=== PATIENT | female | born 1975 | race Caucasian/White ===

== ENCOUNTER 2018-11-06 15:33 | Emergency (ER) | payer SELFPAY ==
[2018-11-06 15:35] VITALS: BP 164/103; PULSE 87; RESP 16; TEMP 37.1; O2SAT 95; BMI 26.7
--- NOTE | 2018-11-06 15:38 | RAD_ITS ---
STUDY: X-RAY CHEST REASON FOR EXAM: Female, 43 years old. Chest pain TECHNIQUE: Frontal view of the chest COMPARISON: 11/27/2010 FINDINGS: The lungs are clear. There are no pleural effusions. There is no pneumothorax. The heart is normal in size. The visualized osseous structures are within normal limits. RAD/Chest 1 View (Portable) IMPRESSION: No acute thoracic pathology. Electronically Signed: Andrew Hanna, at 16:26 EDT Tel , Service support ,
--- NOTE | 2018-11-06 15:38 | EKG12_ITS ---
Test Reason : CP Blood Pressure : / mmHG Vent. Rate : 083 BPM Atrial Rate : 083 BPM P-R Int : 140 ms QRS Dur : 078 ms QT Int : 378 ms P-R-T Axes : 056 041 032 degrees QTc Int : 444 ms Normal sinus rhythm Normal ECG Confirmed by BILL FERNANDEZ, DOUGIE ([id number]), editor greeting card GAY HASKINS ([id number]) on 11/08/2018 10:36:18 AM Referred By: FAVIOLA Confirmed By:DOUGIE KHAN MD
[2018-11-06 15:52] VITALS: BP 146/82; PULSE 70; RESP 14; O2SAT 96
--- NOTE | 2018-11-06 15:56 | ED.VISSUMM ---
- ER Visit Summary Date of Service: 11/06/18 Chief Complaint: Chest pain History of Present Illness: The patient is a [address] depression. No cardiac history. Never had a stress test or cardiac cath. She said yesterday she just was not feeling well this started in the afternoon. She has some chest discomfort. Not associated with exertion. Also some upper abdominal pain which is since resolved nausea but no vomiting. No diarrhea or melena. No fever. No dysuria. She has had no recent exertional chest pain or exertional dyspnea. She is never had a DVT or PE. She has had no leg pain or swelling. No hemoptysis. Is not pleuritic. She has had no recent travel, surgery or immobilization. Physical Examination: Well-appearing middle-aged female. and children present in the room. Total signs are stable and afebrile. Pulse ox 95% on room air no hypoxia. Patient is emotionally tearful. HEENT exam is unremarkable. Neck nontender no JVD. Lungs clear to auscultation bilaterally. Heart regular rhythm no murmur. Abdomen is soft and nontender. Normal bowel sounds no peritoneal signs. Extremities moves all 4. Calves are nontender no edema no cords. Equal symmetrical radial pulses. Normal underwater trapper strength. Normal dorsi plantar flexion. Back nontender. Chest wall nontender. Neurologically she is awake alert with no focal motor deficits. Test Results: Chest x-ray no acute abnormality. Normal cardiac silhouette mediastinum portable one view. Read both by myself and radiologist. EKG sinus rhythm rate 83 no acute signs of AK or ischemia. CBC normal. Chemistries normal. Liver normal. Lipase normal. Troponin normal. Emergency Department Course and Treatment: Undergo cardiac work-up. She will be given IV Ativan 1 mg and p.o. aspirin. Repeat exam patient is doing well at 1650. I discussed all test results with her family she will be discharged home and outpatient follow-up with primary care physician. Treatment Plan: Outpatient follow-up Disposition: Discharge Impression: Acute chest pain uncertain etiology Acute on chronic depression and anxiety This note was generated with [employer] software. It may contain incorrect words, spelling, and punctuation that were not noted in review of the chart prior to signing ED Disposition - Plan for ED Patient: Referrals: Care Physician,No Primary [Primary Care Provider] -
--- NOTE | 2018-11-06 15:59 | ED.DCSUM_ITS ---
- ER Visit Summary Date of Service: 11/06/18 Chief Complaint: Chest pain History of Present Illness: The patient is a [address] depression. No cardiac history. Never had a stress test or cardiac cath. She said yesterday she just was not feeling well this started in the afternoon. She has some chest di scomfort. Not associated with exertion. Also some upper abdominal pain which is since resolved nausea but no vomiting. No diarrhea or melena. No fever. No dysuria. She has had no recent exertional chest pain or exertional dyspnea. She is never had a DVT or PE. She has had no leg pain or swelling. No hemoptysis. Is not pleuritic. She has had no recent travel, surgery or immobilization. Physical Examination: Well-appearing middle-aged female. and children present in the room. Total signs are stable and afebrile. Pulse ox 95% on room air no hypoxia. Patient is emotionally tearful. HEENT exam is unremarkable. Neck nontender no JVD. Lungs clear to auscultation bilaterally. Heart regular rhythm no murmur. Abdomen is soft and nontender. Normal bowel sounds no peritoneal signs. Extremities moves all 4. Calves are nontender no edema no cords. Equal symmetrical radial pulses. Normal solar pool heating installer strength. Normal dorsi plantar flexion. Back nontender. Chest wall nontender. Neurologically she is awake alert with no focal motor deficits. Test Results: Chest x-ray no acute abnormality. Normal cardiac silhouette mediastinum portable one view. Read both by myself and radiologist. EKG sinus rhythm rate 83 no acute signs of PR or ischemia. CBC normal. Chemistries normal. Liver normal. Lipase normal. Troponin normal. Emergency Department Course and Treatment: Undergo cardiac work-up. She will be given IV Ativan 1 mg and p.o. aspirin. Repeat exam patient is doing well at 1650. I discussed all test results with her family she will be discharged home and outpatient follow-up with primary care physician. Treatment Plan: Outpatient follow-up Disposition: Discharge Impression: Acute chest pain uncertain etiology Acute on chronic depression and anxiety This note was generated with [employer] software. It may contain incorrect words, spelling, and punctuation that were not noted in review of the chart prior to signing ED Disposition - Plan for ED Patient: Referrals: Care Physician,No Primary [Primary Care Provider] -
[2018-11-06] MEDS: Aspirin 81 MG TAB.CHEW 324 MG PO (16:03)
[2018-11-06] MEDS: LORazepam 2 MG/ML Syringe 1 MG IV (16:10)
[2018-11-06 16:16] LABS: Absolute Lymphocyte Count 2.45 X10^3/ul (0.83-4.51); Absolute Neutrophil Count 6.2 X10^3/uL (2.0-7.7); Basophil# 0.03 X10^3/uL; Basophil% 0.3 % (0-1); Eosinophil# 0.16 X10^3/uL; Eosinophils% 1.7 % (0-5); Hematocrit 38.8 % (37-47); Hemoglobin 12.9 g/dl (12.0-15.0); Lymphocyte # 2.45 X10^3/ul (4.0); Lymphocyte % 26.4 % (19-41); Mean Corp Hgb Conc 33.2 g/gl (32-36); Mean Corpuscular Hgb 28.6 pg (27.0-32.0); Mean Platelet Vol. 8.8 fl (6.2-12.0); Monocyte# 0.49 X10^3/uL; Monocyte% 5.3 % (0-10); Neutrophil # 6.15 X10^3/uL (2.7-7.7); Neutrophil % 66.3 % (47-70); POSITIVE COUNT NO; POSITIVE DIFFERENTIAL NO; POSITIVE MORPHOLOGY NO; Platelet Count 296 K/mm3 (150-450); RBC Distribution Width SD 40.9 fl (35.1-43.9); Red Blood Count 4.51 M/mm3 (4.2-5.4); White Blood Count 9.3 K/mm3 (4.4-11.0)
[2018-11-06 16:29] LABS: AST(SGOT) 18 U/L (15-37); Alanine Aminotransfer ALT/SGPT 23 U/L (13-56); Albumin, Serum 3.9 g/dL (3.2-5.0); Alkaline Phosphatase 53 U/L (45-117); Anion Gap 10 (5-15); BUN 10 mg/dL (7-18); BUN/Creat Ratio 13.3 RATIO (10-20); Bilirubin, Direct 0.09 mg/dL (0.00-0.30); Calcium,Total 8.8 mg/dL (8.5-10.1); Chloride 107 mmol/L (98-107); Creatinine, Serum 0.75 mg/dL (0.55-1.02); EST Glomerular Filtration Rate 88 mL/min (>60); Est Glom Filt Rate - Afr Amer 107 mL/min (>60); Estimated Creatinine Clearance 92.11 ml/min; Globulin 3.7 g/dL (2.2-4.2); Glucose 86 mg/dL (74-106); Lipase 163 U/L (73-393); Potassium 3.7 mmol/L (3.5-5.1); Protein, Total 7.6 g/dL (6.4-8.2); Sodium Level 143 mmol/L (136-145)
[2018-11-06 16:34] VITALS: BP 121/90; PULSE 83; RESP 16; O2SAT 95
--- NOTE | 2018-11-06 16:51 | ED.DEP ---
ED Disposition - Plan for ED Patient: Disposition: Home or Assisted Living Instructions: ED Chest Pain Atypical Unkn Cause Referrals: Isac Collier MD [STAFF PHYSICIAN] - As soon as possible Additional Instructions: Follow-up with a local primary care physician. All your tests were normal.
[2018-11-06 17:18] VITALS: BP 122/86
[2018-11-06 17:19] VITALS: BP 122/86; PULSE 83; RESP 14
== END 2018-11-06 17:27 | disposition home or self-care (01) ==
PROVIDERS: Emergency Provider Emergency Medicine
DX: R07.9 Chest pain, unspecified (principal); F32.9 Major depressive disorder, single episode, unspecified; F41.9 Anxiety disorder, unspecified; R10.10 Upper abdominal pain, unspecified
CPT/HCPCS: 71045; 80048; 80076; 83690; 84484; 85025; 93005; 96374; 99284; A4216

== ENCOUNTER 2023-08-09 18:29 | Emergency (ER) | payer BC, SELFPAY ==
[2023-08-09 18:29] VITALS: BP 156/99; PULSE 82; RESP 16; TEMP 36.3; O2SAT 100; BMI 28.2
--- NOTE | 2023-08-09 19:49 | EKG12_ITS ---
Test Reason : DYSRHYTHMIA Blood Pressure : / mmHG Vent. Rate : 063 BPM Atrial Rate : 063 BPM P-R Int : 146 ms QRS Dur : 078 ms QT Int : 398 ms P-R-T Axes : 058 044 045 degrees QTc Int : 407 ms Normal sinus rhythm Normal ECG Confirmed by DEWAYNE FERNANDEZ, RONAK ([id number]), general expeditor ZAC WISDOM ([id number]) on 08/15/2023 10:11:05 AM Referred By: Confirmed By:IAN BUCHANAN MD
--- NOTE | 2023-08-09 19:51 | EX.ED.DYSGE1 ---
HPI History of Present Illness Chief Complaint: Weakness Informant: patient Onset/Context/Timing Onset: Days (3 days) Narrative Narrative: Patient presents secondary to not feeling well for the past 3 days. She states she started out feeling very nauseated and just went to sleep. She felt like her limbs were very heavy and it took a lot of effort to move. Yesterday she got significant back pain in her upper back. She states she has fibromyalgia but this was more severe than what she usually experiences. She denies fever or chills. No other cold-like symptoms. Denies urinary symptoms. PFSH PFS Medical History (Updated 08/09/23 @ 22:[address] Paige Arenas MD) Depression Fibromyalgia Home Medications escitalopram oxalate 20 mg tablet (Lexapro) 20 mg PO DAILY depression 07/29/13 [History Last Taken 11/05/18 20 mg] Allergy/AdvReac Type Severity Reaction Status Date / Time cefpodoxime proxetil Allergy Hives Verified 08/09/23 18:31 [From Vantin] erythromycin base Allergy Hives Verified 08/09/23 18:31 [Erythromycin Base] morphine Allergy Hives Verified 08/09/23 18:31 nitrofurantoin Allergy Hives Verified 08/09/23 18:31 [From Macrobid] nitrofurantoin Allergy Hives Verified 08/09/23 18:31 macrocrystalline [From Macrobid] sertraline HCl [From Zoloft] Allergy Hives Verified 08/09/23 18:31 Sulfa (Sulfonamide Allergy Hives Verified 08/09/23 18:31 Antibiotics) Tetracyclines Allergy Hives Verified 08/09/23 18:31 ANTIBIOTICS Allergy Hives Uncoded 11/06/18 15:34 Surgical History (Updated 08/09/23 @ 19:[address] Paige Arenas MD) History of appendectomy History of Social History Smoking Status: Never smoker ROS ROS ED Constitutional Constitutional ED: Denies chills or fever(s) Eyes Eyes: Denies change in vision or discharge from eye(s) ENT ENT ED: Denies discharge from eye(s), rhinorrhea or sore throat Cardiovascular Cardiovascular: Denies chest pain or palpitations Respiratory/Chest Respiratory/Chest: Reports dyspnea; Denies cough Gastrointestinal Gastrointestinal: Reports nausea; Denies abdominal pain, diarrhea or vomiting Genitourinary Genitourinary ED: Denies difficulty urinating or dysuria Musculoskeletal Musculoskeletal: Reports back pain; Denies extremity pain Integumentary Denies Abrasions or rash Neurologic Neurologic: Reports weakness; Denies headache(s) Psychiatric Psychiatric: Denies anxiety or depression Allergic/Immunologic Allergic/Immunologic ED: Denies lip swelling or urticaria EXAM Physical Exam Const Vital Signs: 08/09/23 18:29 08/09/23 19:46 08/09/23 20:29 Temperature 97.4 F L 98.6 F Temperature Source Temporal Temporal Pulse Rate 82 61 Respiratory Rate 16 16 Respiratory Effort Normal Respiratory Pattern Normal Blood Pressure 156/99 H 131/82 H Blood Pressure Mean 118 98 Pulse Ox 100 100 Oxygen Delivery Method Room Air Room Air Positive well nourished and well developed General Appearance ED: well developed HEENT Reports moist mucous membranes Eyes EOMs intact bilaterally Chest Wall inspection of chest normal and palpation of chest normal Resp normal respiratory effort and clear to auscultation bilaterally Cardio regular rate and regular rhythm GI non-tender Auscultation: hypoactive bowel sounds Palpation: soft Extremity normal to inspection Neuro oriented x3 Neuro Narrative: No focal neurologic deficit. Psych mental status grossly normal Skin no rashes or lesions noted MDM MDM MDM Narrative Medical decision making narrative: Patient placed on quality assurance monitor final. EKG obtained to evaluate for cardiac arrhythmia/ischemia. Chest x-ray obtained to evaluate for acute lung pathology, cardiac size, or mediastinal abnormality. IV line established. Patient given Toradol and Zofran along with IV fluids. Labwork obtained to evaluate for leukocytosis, anemia, and electrolyte derangement. Swab for COVID, influenza, and RSV will be obtained. History & Record Review Discussion w/independent historian: Patient Lab Data Attestation: I reviewed the patient's lab results. Labs: Laboratory Results - last 24 hr 08/09/23 20:31 WBC 8.7 RBC 4.75 Hgb 13.0 Hct 40.6 MCV 85.5 MCH 27.4 MCHC 32.0 RDW Std Deviation 42.5 RDW Coeff of Herve 13.5 Plt Count 311 MPV 8.4 Immature Gran % (Auto) 0.200 Neut % (Auto) 55.8 Lymph % (Auto) 35.1 [place] % (Auto) 5.8 Eos % (Auto) 2.3 Baso % (Auto) 0.8 Absolute Neuts (auto) 4.8 Absolute Lymphs (auto) 3.04 Nucleated RBC % 0 D-Dimer Quant (PE/DVT) < 0.27 L Sodium 141 Potassium 3.6 Chloride 110 H Carbon Dioxide 28.0 Anion Gap 3 L BUN 10 Creatinine 0.88 Estim Creat Clear Calc 82.20 Est GFR (MDRD) Af Amer 88 Est GFR (MDRD) Non-Af 73 BUN/Creatinine Ratio 11.4 Glucose 92 Calcium 9.2 Troponin I High Sens 4 TSH 1.59 Radiography Chest X-Ray - ED: 1 View, Read by ED Physician, Normal, Heart, Lungs and Mediastinum Diagnostic Testing: Clinical Impression(s) from Imaging Studies Chest X-Ray 08/09/23 20:30 IMPRESSION: No acute cardiopulmonary pathology Electronically Signed: Tyler Infante MD at 21:42 EST Reading Location ID and State: [address] [place] [address] Tel , Service support , EKG Initial EKG: Attestation: I personally reviewed and interpreted this EKG as follows: Interpretation: Sinus Rhythm (Sinus rhythm at 63 bpm with no acute ischemia.) Treatment and Re-Evaluation :: CBC was normal white count 8.7 with a hemoglobin of 13.0. Chemistry studies unremarkable. Troponin is normal at 4 and D-dimer is less than 0.27. TSH is normal at 1.59. Swab for COVID, influenza, and RSV is negative. 1 view chest x-ray per my interpretation reveals no evidence of infiltrate or acute abnormality. Radiology interpretation reviewed and agrees. EKG is sinus rhythm with no ischemia. On repeat evaluation patient resting comfortably. I believe her symptoms are likely secondary to viral syndrome. She was advised that her COVID and influenza swab here is negative. She will continue supportive care at home. Return instructions given. Discharge Plan Triage Chief Complaint: Weakness ED Provider: Paige Arenas Dx/Rx/DC Orders Clinical Impression: Viral syndrome Instructions: ED Viral Syndrome (Adult) Prescriptions: No Action escitalopram oxalate [Lexapro] 20 MG tablet 20 mg PO DAILY Patient Comments: depression Primary Care Provider: Care Physician,No Primary Referrals: Vidal Lawrence MD [Med Staff - Business Applications Developer] - 1 Week if not improving Care Physician,No Primary [Primary Care Provider] - Disposition Disposition: Home, Self Care
[2023-08-09] MEDS: 0.9% Normal Saline (1000mL) 1,000 ML 1000 ML IV (20:27)
[2023-08-09] MEDS: Ketorolac 15 MG/ML Vial IV (20:27)
[2023-08-09] MEDS: Ondansetron 4 MG/2 ML Vial IV (20:28)
[2023-08-09 20:29] VITALS: BP 131/82; PULSE 61; RESP 16; TEMP 37; O2SAT 100
--- NOTE | 2023-08-09 20:30 | RAD_ITS ---
STUDY: X-RAY CHEST REASON FOR EXAM: Female, 47 years old. back pain TECHNIQUE: AP portable COMPARISON: November 06, 2018 FINDINGS: Lungs are mildly inflated but clear.. There is no demonstrated pleural abnormality. Normal size heart. Normal mediastinum and tam. Normal visualized pulmonary arteries. Normal visualized aortic arch and descending thoracic aorta. Normal visualized thoracic spine. Normal visualized ribs, clavicles, and shoulders. There is no demonstrated abnormality of the visualized soft tissue structures of the upper abdomen. RAD/Chest 1 View (Portable) IMPRESSION: No acute cardiopulmonary pathology Electronically Signed: Tyler Infante MD at 21:42 EST ,
[2023-08-09 20:36] LABS: Absolute Lymphocyte Count 3.04 X10^3/uL (0.83-4.51); Absolute Neutrophil Count 4.8 X10^3/uL (2.0-7.7); Basophil# 0.07 X10^3/uL; Basophil% 0.8 % (0-1); Eosinophils% 2.3 % (0-5); Hematocrit 40.6 % (37-47); Lymphocyte # 3.04 X10^3/ul (0.83-4.51); Lymphocyte % 35.1 % (19-41); Mean Corpuscular Hgb 27.4 pg (27.0-32.0); Mean Corpuscular Volume 85.5 fL (81-99); Mean Platelet Vol. 8.4 fl (6.2-12.0); Monocyte% 5.8 % (0-10); NRBC Flagged by Analyzer 0 % (0-5); Neutrophil # 4.83 X10^3/uL (2.7-7.7); Neutrophil % 55.8 % (47-70); Platelet Count 311 K/mm3 (150-450); RBC Distribution Width CV 13.5 % (11.6-14.6); RBC Distribution Width SD 42.5 fl (35.1-43.9); Red Blood Count 4.75 M/mm3 (4.2-5.4); White Blood Count 8.7 K/mm3 (4.4-11.0)
[2023-08-09 21:04] LABS: Anion Gap 3 (5-15); BUN 10 mg/dL (7-18); BUN/Creat Ratio 11.4 RATIO (10-20); Calcium,Total 9.2 mg/dL (8.5-10.1); Chloride 110 mmol/L (98-107); Creatinine, Serum 0.88 mg/dL (0.55-1.02); EST Glomerular Filtration Rate 73 mL/min (>60); Est Glom Filt Rate - Afr Amer 88 mL/min (>60); Glucose 92 mg/dL (74-106); Potassium 3.6 mmol/L (3.5-5.1); Sodium Level 141 mmol/L (136-145); Thyroid Stim Hormone (TSH) 1.59 uIU/mL (0.358-3.74); Troponin-I HS 4 pg/mL (3.0-54.0)
[2023-08-09 21:08] LABS: D-Dimer Quantitative (DVT/PE) < 0.27 FEU/ug/m (0.27-0.49)
[2023-08-09 22:06] VITALS: BP 132/76; PULSE 75; RESP 19; TEMP 36.4; O2SAT 98
== END 2023-08-09 22:12 | disposition home or self-care (01) ==
PROVIDERS: Emergency Provider Emergency Medicine; Visit Provider Emergency Medicine
DX: R53.1 Weakness (principal); F32.A Depression, unspecified; Z79.899 Other long term (current) drug therapy; Z90.49 Acquired absence of other specified parts of digestive tract; B34.9 Viral infection, unspecified; R11.0 Nausea
CPT/HCPCS: 71045; 80048; 84443; 84484; 85025; 85379; 87631; 93005; 99284; J2405